=== PATIENT | female | born 1960 | race Caucasian/White ===

== ENCOUNTER 2017-03-01 14:11 | Outpatient (CLI) | payer BC ==
[~2017-03-01] VITALS: Ht 168.9 cm; Wt 82.7 kg
[2017-03-01 15:00] VITALS: BP 115/80; Ht 168.9 cm; Wt 82.7 kg
--- NOTE | 2017-03-01 15:16 | NUR ---
DEMEROL 50 MG AND PHENERGAN 25 MG GIVEN IM RIGHT HIP UOQ. ADVISED WILL MONITOR FOR 20 MINUTES BEFORE D/C.
--- NOTE | 2017-03-01 15:30 | NUR ---
PT STATES HEADACHE BEGINNING TO EASE. DOWN FROM 10/10 TO 8/10.
--- NOTE | 2017-03-01 15:35 | NUR ---
D/C'D HOME VIA W/C TO PRIVATE CAR.
== END 2017-03-01 15:40 | disposition home or self-care (01) ==
LOC: D.OPS 14:11
DX: G43.909 Migraine, unspecified, not intractable, without status migrainosus (principal)